=== PATIENT | female | born 1970 | race Caucasian/White ===

== ENCOUNTER 2022-12-08 12:41 | Day surgery (SDC) | payer OTHER ==
[~2022-12-08] VITALS: Ht 173 cm; Wt 85.2 kg
[2022-12-08] VITALS (8 sets, daily range): BP systolic 92–142; BP diastolic 55–85
[~2022-12-08 12:41] MED LIST: PRINIVIL5 M1 PO
--- NOTE | 2022-12-08 13:38 | NUR ---
Ambulatory in Day Surgery History, Chart, Medications and Allergies reviewed before start of procedure.Patient confirms NPO status and agrees with scheduled surgery. PATIENT REPORTS DID HAVE PROTIEN SHAKE THIS AM APPROX 0530. ANETHESIA AWARE. NO CHLOREHEXIDINE SHOWER
--- NOTE | 2022-12-08 13:56 | NUR ---
VERIFIED WITH DR. NGUYEN AND DR. YANA VALLE TO GIVE VERSED AND TRANSFER TO OR WITHOUT HCG RESULTS.
--- NOTE | 2022-12-08 15:32 | NUR ---
REPORT RECIEVED. PT SITTING UP IN BED TOLERING PO FLUIDS. AT BEDSIDE. VSS ON ROOM AIR
--- NOTE | 2022-12-08 15:51 | NUR ---
PT DENIES PAIN. FAMILY AT BEDSIDE. WAITING FOR PT TO BE ABLE TO VOID PER DISCHARGE INFO
--- NOTE | 2022-12-08 16:07 | NUR ---
PT UP TO VOID SUCCESSFULLY
--- NOTE | 2022-12-08 16:14 | NUR ---
Patient up to Ambulate independently. Gait steady. Discharge instructions reviewed with patient AND . Patient verbalizes understanding. Copy given to patient to take home. Discharged via wheelchair to private car for ride home.
== END 2022-12-08 16:15 | disposition home or self-care (01) ==
LOC: ORSCMMR 12:41 → ORD 14:15 → ORSCMMR 14:15
PROVIDERS: Obstetrics & Gynecology
PROC: 0UBM0ZX Excision of Vulva, Open Approach, Diagnostic (ICD-10-PCS; principal; 2022-12-08 14:15)
DX: N90.7 Vulvar cyst (principal); I10 Essential (primary) hypertension; Z79.899 Other long term (current) drug therapy
CPT/HCPCS: 84703; 88305; J1100; J1885; J2250; J2371; J2405; J2704; J3010; J7120

== ENCOUNTER 2023-11-07 10:46 | Day surgery (SDC) | payer OTHER ==
[~2023-11-07] VITALS: Ht 172.7 cm; Wt 89.2 kg
[~2023-11-07 10:46] MED LIST changes: +Balanced Salt Epinephrine Irrigation Solution 500 mL IR SCH; +Lidocaine HCl/Pf 1% 5 ML VIAL XX SCH; +Moxifloxacin HCL 0.5 MG/0.1 ML 0.4MLSYR LEFTEYE SCH; +NS 500 ML IV ONE; +PHENYLEPHRINE\\TROPICAMIDE\\TETRACAINE OPHTHALMIC DILATING SOLN LEFTEYE PRN; +Povidone-Iodine 450 DROP/30 ML Solution LEFTEYE SCH
[2023-11-07] MEDS ORDERED: NS 500 ML IV ONE (10:55)
--- NOTE | 2023-11-07 11:06 | NUR ---
11/07/23 1106 MARIALUISA DIAZ [id number]
[2023-11-07] MEDS ORDERED: FentaNYL Citrate 50 MCG/ML 2 ML Injection ONE (11:21)
[2023-11-07] MEDS ORDERED: Midazolam HCl 1MG / ML 2ML Vial ONE (11:21)
[2023-11-07] MEDS ORDERED: Tetracaine HCl 0.5% Opth Soln 15 ml LEFTEYE ONE (11:44)
[2023-11-07 12:06] VITALS: BP 139/102
== END 2023-11-07 12:23 | disposition home or self-care (01) ==
LOC: ORSCSDS 10:46
PROVIDERS: Student in an Organized Health Care Education/Training Program
PROC: 08RK3JZ Replacement of Left Lens with Synthetic Substitute, Percutaneous Approach (ICD-10-PCS; principal; 2023-11-07 12:00)
DX: H25.812 Combined forms of age-related cataract, left eye (principal); I10 Essential (primary) hypertension; Z79.899 Other long term (current) drug therapy
CPT/HCPCS: J2250; J3010; J7040; V2632